=== PATIENT | female | born 1945 | race Caucasian/White ===

== ENCOUNTER 2018-02-22 09:46 | Observation (INO) | payer OTHER ==
[2018-02-19 11:41] LABS: BASOPHILS # (AUTO) 0.1 (0.0-0.1); EOSINOPHILS # (AUTO) 0.6 (0.0-0.4); EOSINOPHILS % 8.2 % (0.0-6.0); HEMATOCRIT 33.4 % (34.2-44.1); HEMOGLOBIN 10.3 g/dL (12.0-16.0); LYMPHOCYTES # (AUTO) 1.8 (1.0-3.2); LYMPHOCYTES % 24.8 % (18.0-39.1); MEAN CORPUSCULAR HEMOGLOBIN 23.1 pg (28-32); MEAN CORPUSCULAR HGB CONC 30.8 g/dL (31-35); MEAN CORPUSCULAR VOLUME 74.9 fL (81-99); MONOCYTES # (AUTO) 0.6 (0.2-0.8); MONOCYTES % 8.2 % (4.4-11.3); NEUTROPHILS # (AUTO) 4.3 (2.1-6.9); NEUTROPHILS % 57.7 % (38.7-80.0); PLATELET COUNT 273 x10e3/uL (140-360); RED BLOOD COUNT 4.46 x10e6/uL (3.6-5.1); RED CELL DISTRIBUTION WIDTH 22.5 % (11.7-14.4)
--- NOTE | 2018-02-19 12:08 | Diagnostic Imaging Report ---
PROCEDURE: X-RAY CHEST, TWO VIEWS COMPARISON: None. INDICATIONS: PREOPERATIVE CHEST XRAY FOR RIGHT KNEE SURGERY FINDINGS: LUNGS: Clear. The diaphragms are flat. No mass or infiltrate. Vascular markings are normal PLEURA: No effusions or pneumothorax. HEART \T\ MEDIASTINUM: The heart is within normal size-limits. 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 There is a small hiatal hernia. BONES \T\ SOFT TISSUES: Moderate degenerative changes of the left shoulder and mild/moderate degenerative changes of the thoracic and upper lumbar spine. CONCLUSION: Mild pulmonary hyperinflation suggesting COPD. Aortic ectasia. Small hiatal hernia. No acute cardiopulmonary process. Dictated by: Shon Dale M.D. on 02/19/2018 at 12:11 Electronically approved by: Shon Dale M.D. on 02/19/2018 at 12:11
[2018-02-19 12:38] LABS: ELLIPTOCYTE, RBC SLIGHT; EOSINOPHILS % (MANUAL) 7 % (0-7); HOWELL-JOLLY BODIES FEW; LYMPHOCYTES % (MANUAL) 24 % (19-48); MONOCYTES % (MANUAL) 7 % (3.4-9.0); NEUTROPHILS % (MANUAL) 59 % (40-74)
[2018-02-19 12:39] LABS: ANISOCYTOSIS MODERATE; HYPOCHROMASIA SLIGHT; OVALOCYTES FEW; PLATELET ESTIMATE ADEQUATE; PLATELET MORPHOLOGY COMMENT NORMAL; POIKILOCYTOSIS SLIGHT; RBC MORPHOLOGY COMMENT ABNORMAL
[~2018-02-22] VITALS: Ht 165.1 cm; Wt 72.6 kg
[~2018-02-22 09:46] MED LIST: ATENOLOL50 MG PO; OXYBUTYNIN CHLOR5 M1 PO; ROPIVACAINE 246.25 MG, EPINEPHRINE HCL 1:1000 0.5 MG, CLONIDINE HCL 0.08 MG, KETOROLAC ... INJ ONE
--- OUTSIDE RECORDS SUMMARY | 2018-02-22 09:48 | XMS REPORT ---
Author Author [facility] Address Unknown Phone Unavailable Care Team Providers Care Transfer Professor Name Role Phone MACO ROBLES Unavailable Unavailable Problems This patient has no known problems. Allergies, Adverse Reactions, Alerts This patient has no known allergies or adverse reactions. Medications This patient has no known medications. Results Test Description Test Time Test Comments Text Results Atomic Results Result Comments CHEST 2 VIEWS [place] [id number] Patient Name: DEANA CIFUENTES MR #: [id number] : 1945 Age/Sex: 72/F Req #: [id number] Adm Physician: Ordered by: CELESTINO ERICKSON MD Report #: [id number] Location: OR Room/Bed: Procedure: DX/ CHEST 2 VIEWS Exam Date: Exam Time: REPORT STATUS: Signed PROCEDURE: X-RAY CHEST, TWO VIEWS COMPARISON: None. INDICATIONS: PREOPERATIVE CHEST XRAY FOR RIGHT KNEE SURGERY FINDINGS: LUNGS: Clear. The diaphragms are flat. No mass or infiltrate. Vascular markings are normal PLEURA: No effusions or pneumothorax. HEART T MEDIASTINUM: The heart is within normal size-limits. 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 There is a small hiatal hernia. BONES T SOFT TISSUES: Moderate degenerative changes of the left shoulder and mild/moderate degenerative changes of the thoracic and upper lumbar spine. CONCLUSION: Mild pulmonary hyperinflation suggesting COPD. Aortic ectasia. Small hiatal hernia. No acute cardiopulmonary process. Dictated by: Indu Dale M.D. on 02/19/2018 at 12:11 Electronically approved by: Indu Dale M.D. on 02/19/2018 at 12:11 Dictated By: INDU DALE MD 1211 Transcribed By: LUIS on 02/19/18 1211 COPY TO: CELESTINO ERICKSON MD
[2018-02-22] MEDS ORDERED: DEXAMETHASONE SOD PHOS 10 MG/1 ML VIAL ONE (09:56)
[2018-02-22] MEDS ORDERED: CEFAZOLIN SOD 2 GM/D5W 50ML 50 ML IV ONE (09:56)
[2018-02-22] MEDS ORDERED: GABAPENTIN 300 MG CAP ONE (09:56)
[2018-02-22] MEDS ORDERED: CELECOXIB 200 MG CAP ONE (09:56)
[2018-02-22] MEDS ORDERED: BACITRACIN 50,000 UNIT VIAL ONE (10:08)
[2018-02-22] MEDS ORDERED: MUPIROCIN 2% OINT 22 GM TUBE ONE (10:08)
[2018-02-22] MEDS ORDERED: TRANEXAMIC ACID 1,000 MG/10 ML ML ONE (11:18)
[2018-02-22] MEDS: SODIUM CHLORIDE 0.9% 1000ML 1,000 ML IV SCH ×2 (12:10→22:10)
[2018-02-22] MEDS ORDERED: KETOROLAC TROMETHAMINE 30 MG/ML VIAL IV PRN (12:15)
[2018-02-22] MEDS ORDERED: HYDROCODONE/APAP 7.5MG-325MG 1 EA TAB PO PRN (12:15)
[2018-02-22] MEDS ORDERED: DIPHENHYDRAMINE HCL INJ 50 MG/ML VIAL IM/IV PRN (12:15)
[2018-02-22] MEDS ORDERED: ZOLPIDEM TARTRATE 5 MG TAB PO PRN (12:15)
[2018-02-22] MEDS ORDERED: DOCUSATE SODIUM 100 MG CAP PO PRN (12:15)
[2018-02-22] MEDS ORDERED: ACETAMINOPHEN 650 MG SUPP PR PRN (12:15)
[2018-02-22] MEDS ORDERED: ONDANSETRON HCL INJ 2 MG/ML VIAL IV PRN (12:15)
[2018-02-22] MEDS ORDERED: HYDROCODONE/APAP 5MG-325MG TAB PO PRN (12:15)
[2018-02-22] MEDS ORDERED: PROMETHAZINE HCL (IM) 25 MG/ML VIAL INJ PRN (12:15)
[2018-02-22] MEDS ORDERED: FENTANYL CITRATE/PF 100MCG/2 ML INJ ONE ×2 (12:32→18:43)
--- NOTE | 2018-02-22 12:52 | Diagnostic Imaging Report ---
PROCEDURE:X-RAY RIGHT KNEE, ONE OR TWO VIEWS COMPARISON:None. INDICATIONS:POST OP RIGHT KNEE FINDINGS:Status post total right knee arthroplasty with intact prosthesis in adequate anatomic alignment. There is post-operative suprapatellar effusion, soft tissue swelling and gas. Overlying surgical drain. Multiple surgical skin jing. No acute fracture-dislocation. No definite intra-osseous lesion. CONCLUSION:Status post total right knee arthroplasty with intact prosthesis in adequate anatomic alignment. Dictated by: Dennis Causey M.D. on 02/22/2018 at 12:55 Electronically approved by: Dennis Causey M.D. on 02/22/2018 at 12:55
[2018-02-22 13:00] VITALS: BP 130/66
[2018-02-22 13:29] VITALS: BP 141/73
[2018-02-22] MEDS ORDERED: CEFAZOLIN SOD 1 GM/NS 50ML 50 ML IV SCH (14:00)
[2018-02-22 14:43] VITALS: BP 141/73
--- NOTE | 2018-02-22 15:22 | Operative Report ---
DATE OF PROCEDURE: February 22, 2018 FLOATER OPERATOR: Cleveland Bateman PA-C The patient was brought to the operating room for induction of anesthesia. Throughout this case, my PA's assistance was necessary for retraction of soft tissue and positioning of the extremity. This allows for efficient and technically successful execution of the operation and is considered medically necessary. PREOPERATIVE DIAGNOSIS: Osteoarthritis, right knee. POSTOPERATIVE DIAGNOSIS: Osteoarthritis, right knee. PROCEDURE: Right total knee arthroplasty. INDICATIONS: The patient is a 72-year-old lady with severe varus arthritis of both knees. She has been treated with extensive conservative management over the past 8-10 years. She now presents wishing to proceed with definitive intervention. The risks and benefits of a right total knee replacement have been explained. She states she understands and wishes to proceed. DESCRIPTION OF PROCEDURE: The patient was brought to the operating room and placed under general anesthetic. She received a regional block, prophylactic antibiotics and tranexamic acid in the holding area. Her right lower extremity was prepped and draped in a sterile manner. A preoperative time out was performed. The extremity was exsanguinated, and a proximal tourniquet was inflated to 300 mmHg. An anterior incision with a medial parapatellar arthrotomy was performed. Clear synovial fluid was removed from the joint. Fairly extensive medial soft tissue release was required. The knee was brought up into flexion with the patella everted. Marginal osteophytes and meniscal remnants were removed. 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 The PCL was removed. A Roberts and Nephew Kristan II posterior stabilized knee system was used throughout the case. An extramedullary cutting guide was used to resect the proximal tibia. Fairly dense sclerotic bone was encountered on the medial aspect. The tibial base plate was a size #4. The central fin punch was impacted and attention was directed towards the distal femur. Additional drill holes had been placed in the sclerotic bone for better ultimate cement interdigitation. An intramedullary cutting guide was used to resect the distal femur in 6 degrees of valgus and rotation referenced off of a combination of landmarks, including Whitesides line, the epicondylar axis and the posterior condyles. The femoral component was a size #5. The anterior and posterior cuts were made. The notch cut was made. Trial reductions were performed. A 9 mm posterior stabilized tibial insert provided appropriate soft tissue balancing in flexion and extension. The patella was resurfaced with a 29 mm x 9 mm patellar button. The thickness was checked before and after and was 22 mm. Patellar tracking was noted to be concentric. The trial implants were removed. A 100 mL premixed pericapsular injection was placed. The knee was thoroughly irrigated with a Pulsavac. The components were cemented into place using a single mix of Palacos cement preloaded with antibiotics. Care was taken to remove extravasated cement. The wound was further irrigated while the cement cured. The arthrotomy was then closed with interrupted #1 Ethibond. The knee was put through flexion and extension to ensure a secure closure. The skin was closed with subcuticular Vicryl and jing. A sterile bandage was applied. The patient was extubated and transported to the recovery room in stable condition. Blood loss was minimal. All needle and sponge counts were correct. Job#: [id number]
[2018-02-22 16:37] VITALS: BP 117/65
[2018-02-22] MEDS ORDERED: CELECOXIB 100 MG CAP PO SCH (17:00)
[2018-02-22] MEDS: CEFAZOLIN SOD 1 GM VIAL IV SCH (17:53)
[2018-02-22] MEDS: ASPIRIN 325 MG TAB PO SCH (17:54)
[2018-02-22] MEDS: CELECOXIB 200 MG CAP PO SCH (17:54)
[2018-02-22] MEDS: ACETAMINOPHEN 1000 MG/100 ML IV SCH ×2 (17:54→23:12)
[2018-02-22] MEDS ORDERED: SEVOFLURANE INHAL SOLN 250 ML PEN BTL ONE (18:10)
[2018-02-22] MEDS ORDERED: PROPOFOL IV EMULSION 10 MG/ML 20 ML VIAL ONE (18:10)
[2018-02-22] MEDS ORDERED: DEXAMETHASONE SOD PHOS INJ 4 MG/ML VIAL ONE (18:10)
[2018-02-22] MEDS ORDERED: LIDOCAINE HCL 2% LOCAL INJ 5 ML SDV VIAL INJ ONE (18:10)
[2018-02-22] MEDS ORDERED: EPHEDRINE SULFATE INJ 50 MG/10 ML SYR ONE (18:10)
[2018-02-22] MEDS ORDERED: ATROPINE SULFATE 1 MG/ML VIAL ONE (18:10)
[2018-02-22] MEDS ORDERED: HYDRALAZINE HCL 20 MG/ML VIAL ONE (18:10)
[2018-02-22] MEDS ORDERED: GLYCOPYRROLATE INJ 1MG/ 5 ML SYR ONE (18:10)
[2018-02-22] MEDS ORDERED: KETOROLAC TROMETHAMINE 30 MG/ML VIAL ONE (18:10)
[2018-02-22] MEDS ORDERED: ONDANSETRON HCL INJ 2 MG/ML VIAL ONE (18:10)
[2018-02-22] MEDS ORDERED: LIDOCAINE 2%/ EPINEPHRINE 20ML MDV ONE (18:34)
[2018-02-22] MEDS ORDERED: ROPIVACAINE 0.5% 5 MG/ML 30 ML SDV ONE (18:34)
[2018-02-22] MEDS ORDERED: MIDAZOLAM HCL 2 MG/2 ML VIAL ONE (18:43)
[2018-02-22 20:00] VITALS: BP 97/54
[2018-02-22 20:06] VITALS: BP 97/54
[2018-02-23] VITALS: BP 103/52
[2018-02-23] MEDS: CEFAZOLIN SOD 1 GM VIAL IV SCH ×2 (00:41→08:09)
[2018-02-23 04:00] VITALS: BP_SYST 115; BP_SYST 90; BP_DIAS 51; BP_DIAS 63
[2018-02-23] MEDS: ACETAMINOPHEN 1000 MG/100 ML IV SCH (05:27)
[2018-02-23 08:00] VITALS: BP 106/55
[2018-02-23] MEDS: ASPIRIN 325 MG TAB PO SCH (08:09)
[2018-02-23] MEDS: CELECOXIB 200 MG CAP PO SCH (08:09)
[2018-02-23 12:00] VITALS: BP 98/55
[2018-02-23] MEDS ORDERED: ACETAMINOPHEN 1000 MG/100 ML IV PRN (12:15)
[2018-02-23] MEDS ORDERED: ASPIRIN325 MG PO (13:36)
== END 2018-02-23 15:47 | disposition home health service (06) ==
LOC: OR 09:46 → MED/SURG 12:37
PROVIDERS: ADMIT Specialist; ATTEND Specialist
DX: M17.11 Unilateral primary osteoarthritis, right knee (principal); I10 Essential (primary) hypertension; G89.29 Other chronic pain
CPT/HCPCS: 27447; 36415; 71046; 73560; 85025; 86850; 86900; 86920; 97110; 97116; 97161; 97530 ×2; G0378 ×2; G8978; G8979; J0171; J0360; J0461; J0690 ×2; J1100 ×2; J1885; J2001 ×2; J2250; J2405; J2795; J3490; J7030